=== PATIENT | female | born 1960 | race Caucasian/White ===

== ENCOUNTER 2021-07-13 11:59 | Emergency (ER) | payer OTHER, SELFPAY ==
[2021-07-13 12:07] VITALS: BP 147/77; PULSE 63; RESP 18; TEMP 37.2; O2SAT 100
--- NOTE | 2021-07-13 12:23 | ED.GENADULT ---
HPI - General Adult General Chief complaint: Back Pain/Injury Stated complaint: Upper back Pain Time Seen by Provider: 07/13/21 12:13 Source: patient Mode of arrival: ambulatory Limitations: no limitations History of Present Illness HPI narrative: 61-year-old female presented for complaint of pain to left shoulder blade and radiates down the left arm for 5 days. Pain is constant and sharp. She states she tried massage last night, pain is worse today. Pain is reproducible, worsened with movements like sitting at the computer. Better when laying back or having arm up over her head. She is taking Aleve which also reduces pain. Denies associated heart racing, shortness of breath, cough, dizziness, nausea, vomiting, fever or chills. Denies PMH. Related Data Home Medications Medication Instructions Recorded Confirmed estradiol-norethindrone acet 1 tablet PO DAILY 04/06/19 07/13/21 Allergies Allergy/AdvReac Type Severity Reaction Status Date / Time No Known Allergies Allergy Verified 07/13/21 12:07 Review of Systems Review of Systems: CONSTITUTIONAL: Denies body aches, fever, chills, or sweats. EYES: Denies visual changes, redness, or discharge. ENT: Denies rhinorrhea, congestion, sore throat, or otalgia. CARDIOVASCULAR: Denies chest pain, palpitations, or edema. RESPIRATORY: Denies cough or dyspnea. GASTROINTESTINAL: Denies abdominal pain, nausea, vomiting, or diarrhea. GENITOURINARY: Denies dysuria or hematuria. SKIN: Denies rash, itching, or wounds. MUSCULOSKELETAL: reports left back pain NEUROLOGIC: Denies headache, numbness, tingling, or weakness. PSYCH: Denies depression or anxiety. All systems reviewed & are unremarkable except as noted in HPI and below [facility] Past Medical History Medical History (Updated 07/13/21 @ 12:31 by Padma Figueroa APRN) Vitamin D deficiency Family History Family History Mother Diabetes mellitus Hypertension Family history of malignant neoplasm of breast in first degree relative Family history of diabetes mellitus in first degree relative Father Family history of malignant neoplasm of bone Social History Social History Smoking status: Never smoker Second hand tobacco smoke exposure: No Alcohol intake: current Comments At time of signature, I have reviewed and agree with nursing past medical, surgical, social and family history unless otherwise noted. Please see nursing chart for further information. There is no relevant family history pertinent to the presenting complaint Exam Narrative: GENERAL: Well-appearing HEAD: Normocephalic, atraumatic. EYES: EOMI. No redness or drainage. Conjunctivae normal. ENT: Mucous membranes pink and moist. No rhinorrhea. NECK: Normal AROM. Supple. No lymphadenopathy. CHEST: No respiratory distress. Clear to auscultation. HEART: Regular rate and rhythm. No murmur appreciated. Normal peripheral pulses. ABDOMEN: Soft, nontender, nondistended, normal active bowel sounds. MUSCULOSKELETAL: No bony tenderness. Pain is reproducible to back mid scapula EXTREMITIES: Normal range of motion. No edema. SKIN: Warm, dry, no rash. Capillary refill normal. Normal skin turgor. NEURO: No focal deficits. Alert and oriented x3. Gait steady. PSYCH: Normal affect. No signs of depression or anxiety. Course Course Emergency Course: Patient is aware of diagnosis, understands and agrees to treatment plan. Anticipatory guidance given. Patient agrees to follow-up as directed and is aware of reasons to seek care at the emergency department. Portions of this record may have been created with voice recognition software Level of Care: Express Care Visit Vital Signs Vital signs: Vital Signs Temperature 98.9 F 07/13/21 12:07 Pulse Rate 63 07/13/21 12:07 Respiratory Rate 18 07/13/21 12:07 Blood Pressure 147/77 H 07/13
--- NOTE | 2021-07-13 12:28 | ECG_ITS ---
Measurements Intervals [place] Rate: 59 P: 62 GA: 119 QRS: 11 QRSD: 90 T: 45 QT: 416 QTc: 414 Interpretive Statements SINUS BRADYCARDIA WITH SHORT GA INTERVAL LOW QRS VOLTAGE IN PRECORDIAL LEADS [QRS DEFLECTION < 1.0 mV IN CHEST LEADS] NO PREVIOUS ECG AVAILABLE FOR COMPARISON Electronically Signed On 07-13-2021 18:45:36 CDT by Fatou Taylor M.D.
[2021-07-13] MEDS: KETOROLAC (*BKC) 60 MG/2 ML VIAL IM (12:38)
== END 2021-07-13 12:53 | disposition home or self-care (01) ==
PROVIDERS: Emergency Provider Nurse Practitioner Family
DX: M54.6 Pain in thoracic spine (principal)
CPT/HCPCS: 93005; 96372; 99213; G0463; J1885

== ENCOUNTER 2021-07-19 10:30 | Emergency (ER) | payer OTHER, SELFPAY ==
[2021-07-19] VITALS (34 sets, daily range): BP systolic 121–155; BP diastolic 75–108; PULSE 50–84; RESP 9–23; O2SAT 83–100
--- NOTE | ~2021-07-19 | XR_ITS ---
EXAMINATION: XR chest 2V 07/19/2021 11:14 INDICATION: Left-sided chest pain PROCEDURE: 2 view chest COMPARISON: 01/21/2018 FINDINGS: The lungs are clear. The cardiomediastinal silhouette is within normal limits. There are no pleural effusions. There is no pneumothorax suspected. IMPRESSION: 1: NO ACUTE CARDIOPULMONARY DISEASE. Reviewed, dictated and finalized at location A.
--- NOTE | 2021-07-19 10:34 | ECG_ITS ---
Measurements Intervals [place] Rate: 61 P: 63 AR: 117 QRS: 1 QRSD: 87 T: 50 QT: 425 QTc: 431 Interpretive Statements SINUS RHYTHM WITH SINUS ARRHYTHMIA WITH SHORT AR INTERVAL ABNORMAL ECG COMPARED TO ECG 07/13/2021 12:27:53 SINUS RHYTHM NOW PRESENT SINUS ARRHYTHMIA NOW PRESENT Electronically Signed On 07-19-2021 14:19:00 CDT by Stephon Mcknight M.D.
[2021-07-19 11:03] LABS: Basophils Percent Auto 0.6 % (0.2-1.2); Eosinophils Absolute Auto 0.1 K/mm3 (0-0.3); Eosinophils Percent Auto 2.8 % (0-4.4); Hematocrit 40.1 % (37.0-47.0); Hemoglobin 13.1 g/dL (12.0-15.0); Immature Granulocyte Absolute 0.02 K/mm3 (0.00-0.031); Immature Granulocyte Percent A 0.4 % (0-0.5); Lymphocytes Absolute Auto 1.91 K/mm3 (0.9-3.2); Mean Corpuscular HGB Conc 32.7 g/dl (32-36); Mean Corpuscular Hemoglobin 31.5 pg (26-34); Mean Corpuscular Volume 96.4 fl (80-100); Mean Platelet Volume 9.2 fl (7.4-10.4); Monocytes Absolute Auto 0.4 K/mm3 (0.1-0.6); Monocytes Percent Auto 8.3 % (2.6-8.5); Neutrophils Absolute Auto 2.5 K/mm3 (1.3-6.7); Neutrophils Percent Auto 49.9 % (45.5-73.1); Platelet Count Result 283 k/mm3 (150-375); Red Blood Count 4.16 M/mm3 (4.2-5.4); Red Cell Distribution Width 12.2 % (11.5-14.5)
[2021-07-19 11:13] LABS: Prothrombin Time 12.7 Seconds (11.1-14.7)
[2021-07-19 11:22] LABS: Alanine Aminotransferase 16 U/L (4-35); Albumin Level 4.5 g/dL (3.5-5.1); Alkaline Phosphatase 75 U/L (38-126); Anion Gap 5 mmol/L (8-16); Aspartate Amino Transferase 24 U/L (14-36); Bilirubin,Total 0.5 mg/dL (0.2-1.3); Blood Urea Nitrogen 18 mg/dL (7-17); Calcium 8.8 mg/dL (8.4-10.2); Carbon Dioxide 26 mmol/L (22-30); Chloride 105 mmol/L (98-107); Estimated Glomerular Filt Rate 57; Glucose 99 mg/dL (65-110); Lipase 99 U/L (23-300); Potassium 4.1 mmol/L (3.4-5.0); Sodium 136 mmol/L (137-145)
--- NOTE | 2021-07-19 11:26 | PC.NURSE ---
Attempted to medicate pt with 324mg ASA. Pt states she took Excedrin migraine this morning which has 250mg ASA in it. Per fran Vinson to administer additional 324mg ASA.
[2021-07-19] MEDS: ASPIRIN 81 MG CHEWABLE TABLET 324 MG PO (11:28)
[2021-07-19 11:33] LABS: Troponin I < 0.012 ng/mL (0.000-0.034)
--- NOTE | 2021-07-19 12:28 | ED.GENADULT ---
HPI - General Adult General Chief complaint: Chest Pain Stated complaint: Chest Pain and Back Pain Time Seen by Provider: 07/19/21 11:55 Source: patient, family and RN notes reviewed Mode of arrival: ambulatory Limitations: no limitations History of Present Illness HPI narrative: 61-year-old female with no personal cardiac history presenting to the emergency department for evaluation of back pain and chest pain. Patient states on she began developing some back pain between her shoulder blades. Patient states the pain is changed when she moves her hand above her head. Patient did have follow-up and was started on Flexeril and Toradol. Patient states in response to this treatment she did feel improved. Patient states that she resumed her normal activity on Saturday and then Saturday morning she woke up and was having a return of her back pain. Patient then had follow-up on Saturday with her primary care physician and was started on meloxicam. Patient states that she has had persistent anterior pain as well. Patient states the pain has been constant for today. Patient does state the pain sometimes radiates to her left arm. Patient denies any associated shortness of breath. Patient denies being a smoker. Patient states that she has no prior history of hypertension high cholesterol or coronary artery disease. Patient has never had a stress test. Related Data Home Medications Medication Instructions Recorded Confirmed estradiol-norethindrone acet 1 tablet PO DAILY 04/06/19 07/13/21 Allergies Allergy/AdvReac Type Severity Reaction Status Date / Time No Known Allergies Allergy Verified 07/19/21 10:46 Review of Systems Review of Systems: CONSTITUTIONAL: Denies fever, chills, or sweats. EYES: Denies visual changes, redness, or discharge. ENT: Denies rhinorrhea, congestion, sore throat, or otalgia. CARDIOVASCULAR: reports back and chest pain RESPIRATORY: Denies cough or dyspnea. GASTROINTESTINAL: Denies abdominal pain, nausea, vomiting, or diarrhea. GENITOURINARY: Denies dysuria or hematuria. SKIN: Denies rash or itching. MUSCULOSKELETAL:upper back pain NEUROLOGIC: Denies headache, numbness, or weakness. All systems reviewed & are unremarkable except as noted in HPI and below PMFSH Past Medical History Medical History (Updated 07/19/21 @ 15:10 by Mitchell Raymond MD) Vitamin D deficiency Family History Family History Mother Diabetes mellitus Hypertension Family history of malignant neoplasm of breast in first degree relative Family history of diabetes mellitus in first degree relative Father Family history of malignant neoplasm of bone Social History Social History Smoking status: Never smoker Second hand tobacco smoke exposure: No Alcohol intake: current Exam Narrative: APPEARANCE: Well appearing, no pain, no distress, well-nourished. HEAD: normocephalic, atraumatic. EYES: PERRLA/EOMI, conjunctivae clear. NOSE: Normal no drainage EARS:TMS clear with good light reflex. THROAT: Pharynx clear, no exudate. NECK: Supple. No adenopathy, no masses. RESPIRATORY: Airway patent, respirations nonlabored. Clear to auscultation bilaterally, no rales, rhonchi, wheezing. CARDIOVASCULAR: Regular rate and rhythm without murmurs rubs or gallops. ABDOMINAL: Soft, nontender, nondistended, normal bowel sounds MUSCULOSKELETAL: Moves all extremities. Strength/ROM intact, No edema, No calf tenderness. NEURO: Alert. Cranial nerves II through XII intact. Good coordination SKIN: Warm, dry. Normal Color Course Course Emergency Course: Patient had negative serial troponins and a negative dimer. Chest x-ray shows no acute cardiopulmonary abnormality. Per her heart score patient is low risk and is suitable for discharge to home with outpatient follow up and outpatient cardiac testing. Patient was advised on ludivina
[2021-07-19 14:27] LABS: Troponin I < 0.012 ng/mL (0.000-0.034)
[2021-07-19 14:28] LABS: D Dimer 0.27 ug/mL (<0.48)
[2021-07-19] MEDS: HYDROcodone/acetaminophen (*CRX) 5-325 MG TABLET 1 TAB PO (15:27)
== END 2021-07-19 15:28 | disposition home or self-care (01) ==
PROVIDERS: Emergency Medicine; Emergency Provider Emergency Medicine; PCP Physician Assistant
DX: R07.89 Other chest pain (principal)
CPT/HCPCS: 36415; 71046; 80053; 83690; 84484; 85025; 85380; 85610; 85730; 93005; 99284; A9270

== ENCOUNTER → 2021-07-22 10:40 | Outpatient (CLI) | payer OTHER, SELFPAY ==
--- NOTE | ~2021-07-22 | XR_ITS ---
EXAMINATION: XR lumbar spine 2-3V DATE: 07/22/2021 12:07 INDICATION: Left-sided mid back pain. TECHNIQUE: 3 views of lumbar spine were obtained. COMPARISON: None. FINDINGS: There is 7 degrees levocurvature of lumbar spine. There is a hypoplastic right L1 rib. Vert ebral body heights are normal. There is mildly decreased disc height at L2-L3 and L3-L4. There are en dplate osteophytes at most levels. There is multilevel mild to moderate facet joint osteoarthritis. IMPRESSION: 1. Mild lumbar spondylosis. Reviewed, dictated and finalized at location A. IMPRESSION: 1. Mild lumbar spondylosis.
--- NOTE | ~2021-07-22 | XR_ITS ---
EXAMINATION: XR chest 2V EXAM DATE: 07/22/2021 12:07 INDICATION: Left-sided mid back pain. TECHNIQUE: Frontal and lateral projections of the chest obtained and reviewed. Comparison is made to prior examination from 07/19/2021. FINDINGS: The lungs are clear. There are no pleural effusions. The cardiomediastinal silhouette is within normal limits. There is no pneumothorax suspected. The bones and soft tissues are unremarkab le. IMPRESSION: Normal chest x-ray exam. Reviewed, dictated and finalized at location G. IMPRESSION: Normal chest x-ray exam.
== END ==
PROVIDERS: PCP Physician Assistant; Visit Provider Physician Assistant
DX: M54.9 Dorsalgia, unspecified (principal); M25.512 Pain in left shoulder; M47.816 Spondylosis without myelopathy or radiculopathy, lumbar region
CPT/HCPCS: 71046; 72100

== ENCOUNTER → 2021-07-27 10:58 | Outpatient (CLI) | payer OTHER, SELFPAY ==
--- NOTE | ~2021-07-27 | XR_ITS ---
XR thoracic spine 3V DATE: 07/27/2021 11:40 INDICATION: Left mid back pain TECHNIQUE: AP, lateral and swimmer views COMPARISON: None FINDINGS: Prominent degenerative disc disease in the lower cervical spine. There is minimal degenerative spurring of the thoracic spine. No fracture, dislocation or bone destru ction. The thoracic pedicles are intact. No paraspinal soft tissue thickening. IMPRESSION: Degenerative disc disease of the lower cervical spine Minimal degenerative spurring of the thoracic spine Reviewed, dictated and finalized at location A.
--- NOTE | ~2021-07-27 | XR_ITS ---
XR shoulder LT min 2V DATE: 07/27/2021 11:40 INDICATION: Acute left shoulder pain TECHNIQUE: 4 views COMPARISON: None FINDINGS: No fracture or dislocation, periosteal reaction or bone destruction or abnormal soft tissue calcification. Normal alignment at the acromioclavicular and glenohumeral joints. Degenerative disc disease and included lower cervical spine. IMPRESSION: Negative left shoulder Degenerative changes of the cervical spine Reviewed, dictated and finalized at location A.
== END ==
PROVIDERS: PCP Physician Assistant; Visit Provider Physician Assistant
DX: M25.512 Pain in left shoulder (principal); M47.813 Spondylosis without myelopathy or radiculopathy, cervicothoracic region
CPT/HCPCS: 72072; 73030

== ENCOUNTER 2021-08-18 15:05 | Outpatient (CLI) | payer OTHER, SELFPAY ==
--- NOTE | ~2021-08-18 | MM_ITS ---
EXAMINATION: MM screening yuan BI w horacio HISTORY: Screening mammogram TECHNIQUE: Craniocaudal and mediolateral oblique 3-D tomosynthesis images were obtained and synthetic 2-D images were generated. CAD analysis was submitted and interpreted. COMPARISON: 02/07/2018, 04/18/2016, 04/20/2013 bilateral screening mammogram examinations BREAST PARENCHYMAL COMPOSITION: The breasts are heterogeneously dense, which may obscure small masses . FINDINGS: There is no evidence of suspicious mass, calcification, or architectural distortion to sugg est malignancy in either breast. There has been no suspicious interval change. IMPRESSION: 1. No mammographic evidence of malignancy. 2. Recommend routine screening mammography in one year. BI-RADS Category 1: Negative Reviewed, dictated and finalized at location A.
== END 2021-08-18 15:06 | disposition home or self-care (01) ==
LOC: ANHIMG 15:08
PROVIDERS: PCP Physician Assistant; Visit Provider Nurse Practitioner
DX: Z12.31 Encounter for screening mammogram for malignant neoplasm of breast (principal)
CPT/HCPCS: 77063; 77067

== ENCOUNTER 2022-09-13 12:15 | Emergency (ER) | payer OTHER, SELFPAY ==
--- NOTE | ~2022-09-13 | XR_ITS ---
EXAMINATION: XR chest 2V 09/13/2022 12:43 INDICATION: Cough PROCEDURE: 2 view chest COMPARISON: 07/22/2021 FINDINGS: The lungs are clear. The cardiomediastinal silhouette is within normal limits. There are no pleural effusions. There is no pneumothorax suspected. IMPRESSION: 1: NO ACUTE CARDIOPULMONARY DISEASE. Reviewed, dictated and finalized at location L.
--- NOTE | 2022-09-13 12:19 | ED.URI ---
HPI - URI/Sore Throat General Chief Complaint: Upper Respiratory Infection Stated Complaint: cough / fever Time Seen by Provider: 09/13/22 12:29 Source: patient and RN notes reviewed Mode of arrival: ambulatory Limitations: no limitations History of Present Illness HPI Narrative: 62-year-old female presents with concern for 4 day history of fevers, fatigue, general malaise, cough, feeling dizzy. She reports her had similar symptoms that he got better. She reports she started feeling better yesterday yesterday it got worse again this morning. She reports some nasal congestion. Denies sore throat, stomachache, vomiting, diarrhea MD elicited complaint: cough and sore throat Related Data Home Medications Medication Instructions Recorded Confirmed estradiol-norethindrone acet 0.5 1 tablet PO DAILY 04/06/19 09/13/22 mg-0.1 mg tablet Allergies Allergy/AdvReac Type Severity Reaction Status Date / Time No Known Allergies Allergy Verified 09/13/22 12:34 Review of Systems Review of Systems: CONSTITUTIONAL: Reports malaise, fatigue, fever. EYES: Denies visual changes, redness, or discharge. ENT: Reports rhinorrhea, congestion. Denies sinus pain, otalgia and sore throat. CARDIOVASCULAR: Denies chest pain, palpitations, or edema. RESPIRATORY: Reports cough. Denies dyspnea. GASTROINTESTINAL: Denies abdominal pain, nausea, vomiting, diarrhea SKIN: Denies rash or itching. MUSCULOSKELETAL: Reports myalgia. NEUROLOGIC: Denies headache. All systems reviewed & are unremarkable except as noted in HPI and below PMFSH Past Medical History Medical History (Updated 09/13/22 @ 12:50 by Ashely Neil NP) Vitamin D deficiency Family History Family History Mother Diabetes mellitus Hypertension Family history of malignant neoplasm of breast in first degree relative Family history of diabetes mellitus in first degree relative Father Family history of malignant neoplasm of bone Social History Social History Smoking status: Never smoker Second hand tobacco smoke exposure: No Alcohol intake: current Comments At time of signature, agree with nursing past medical, surgical, social and family history. There is no relevant family history pertinent to the presenting complaint Exam Narrative: GENERAL: Nontoxic-appearing and in no acute distress. HEAD: Normocephalic EYES: PERRLA, conjunctivae clear ENT: Nares clear, turbinates edematous and erythematous, clear discharge. Mucous membranes moist. TM pearly fajardo with sharp light reflex bilaterally; no tragal tenderness. Oropharynx not erythematous without lesions. Tonsils not enlarged and without exudate, no drooling, no hoarseness, no trismus, uvula midline. NECK: Supple. No lymphadenopathy CHEST: Clear to auscultation, breath sounds equal. No wheezing, rhonchi, rales, or stridor. No respiratory distress, speaks in full sentences. Cough noted HEART: Regular rate and rhythm. No murmur heard. SKIN: Warm, dry, no rash. NEURO: Alert and oriented x3. PSYCH: Normal mood and affect Course Course Emergency Course: Patient is aware of diagnosis, understands and agrees to treatment plan. Anticipatory guidance given. Patient agrees to follow-up as directed and is aware of reasons to seek care at the emergency department. Portions of this record may have been created with voice recognition software Level of Care: Express Care Visit Vital Signs Vital signs: Reviewed. MDM - URI/Sore Throat MDM Narrative Medical decision making narrative: Differential diagnosis considered: Navarro virus, strep pharyngitis, allergic rhinitis, upper respiratory tract infection, sinusitis, rhinosinusitis, nasopharyngitis. viral pharyngitis, otitis media, otitis externa, pneumonia, bronchitis, viral cough syndrome, viral syndrome, and influenza. Exam findings show no a
[2022-09-13 12:28] VITALS: BP 133/88; PULSE 68; RESP 18; TEMP 36.3; O2SAT 99
== END 2022-09-13 13:14 | disposition home or self-care (01) ==
PROVIDERS: Emergency Provider Nurse Practitioner
DX: J10.1 Influenza due to other identified influenza virus with other respiratory manifestations (principal)
CPT/HCPCS: 71046; 87804; 99213; G0463

== ENCOUNTER 2023-06-24 11:10 | Emergency (ER) | payer OTHER, SELFPAY ==
[2023-06-24 11:51] VITALS: BP 139/83; PULSE 55; RESP 18; TEMP 36.7; O2SAT 100
--- NOTE | 2023-06-24 12:17 | ED.GENADULT ---
HPI - General Adult General Chief complaint: Skin/Abscess/Foreign Body Stated complaint: broken blood vessel lt eye Time Seen by Provider: 06/24/23 12:17 Source: patient, RN notes reviewed and old records reviewed Mode of arrival: ambulatory Limitations: no limitations History of Present Illness HPI narrative: 63 old female presents to the [facility] with a bruise to the left outer eye, no eye involvement. Denies any trauma. No tenderness to the surrounding tissue States that she wears contact lenses. States that she did not notice a bruise when she put the contact lenses in this morning. Has all 6 levels of days, denies any pain. Onset (ago): hour(s) Related Data Home Medications Medication Instructions Recorded Confirmed estradiol-norethindrone acet 0.5 1 tablet PO DAILY 04/06/19 06/24/23 mg-0.1 mg tablet celecoxib 200 mg capsule mg 06/24/23 Allergies Allergy/AdvReac Type Severity Reaction Status Date / Time No Known Allergies Allergy Verified 06/24/23 12:21 Review of Systems Review of Systems: All systems reviewed & are unremarkable except as noted in HPI and below Constitutional: Constitutional: Reports no additional constitutional complaints Eyes: Eyes: Reports no additional eye complaints ENT: Reports system reviewed and no additional complaints, except as documented Cardiovascular: Cardiovascular: Reports no additional cardiovascular complaints, Denies chest pain and Denies dyspnea Respiratory: Respiratory: Reports no additional respiratory complaints, Denies chest congestion, Denies cough and Denies dyspnea Gastrointestinal: Gastrointestinal: Reports no additional gastrointestinal complaints, Denies abdominal pain, Denies nausea and Denies vomiting Musculoskeletal: Musculoskeletal: Reports no additional musculoskeletal complaints Integumentary/Breasts: Skin/Breast: Reports as per HPI Neurologic: Reports system reviewed and no additional complaints, except as documented Psychiatric: Psychiatric: Reports no additional psychiatric complaints Allergic/Immunologic: Allergic/Immunologic: Reports no additional allergic/immunologic complaints [facility] Past Medical History Medical History Vitamin D deficiency Family History Family History Mother Diabetes mellitus Hypertension Family history of malignant neoplasm of breast in first degree relative Family history of diabetes mellitus in first degree relative Father Family history of malignant neoplasm of bone Social History Social History Smoking status: Never smoker Second hand tobacco smoke exposure: No Alcohol intake: current Comments At the time of my signature, I reviewed and agree with the nursing past medical, surgical, social, and family history. There is no relevant family history pertinent to the patient complaint. Exam Const: General: cooperative, healthy appearing, comfortable, no acute distress, well developed, alert and well nourished Nutritional Appearance: well nourished Orientation/consciousness: patient oriented x3 Limitations: no limitations HENMT: Head: normal to inspection Head images: 1. Left outer eye 0.5 cm by 1 cm ecchymosis without swelling, erythema, rash. No eye involvement, no conjunctival involvement Ears: hearing grossly normal bilaterally and external ears normal Face/Nose/Sinus: Normal external nose present, Normal nares present, Normal nasal mucous membranes and turbinates present, normal facial exam and face symmetric Face and sinus: normal facial exam and face symmetric Mouth: Yes Normal oral and palatal mucosa present, Yes lip normal and Yes moist mucous membranes Throat: posterior oropharynx normal and uvula midline Eyes: General: appearance normal, both eyes and all related structures Alignment and Position: alignment nor
== END 2023-06-24 12:39 | disposition home or self-care (01) ==
PROVIDERS: Emergency Provider Nurse Practitioner
DX: S00.12XA Contusion of left eyelid and periocular area, initial encounter (principal); X58.XXXA Exposure to other specified factors, initial encounter
CPT/HCPCS: 99211; G0463

== ENCOUNTER 2023-10-14 08:48 | Outpatient (CLI) | payer OTHER, SELFPAY ==
--- NOTE | ~2023-10-14 | DEXA_ITS ---
Bone Density Report Name: VERONIQUE SHANKAR Age: 63 Sex: Female Ethnicity: White Date of : 1960 Indication: postmenopausal; screening for osteoporosis; height loss; history of glucocorticoids; Referring Provider: RIGOBERTO, ARTEM Study: Bone densitometry was performed. Exam Date: October 14, 2023 Accession number: [id number] Bone Density: Region BMD T-score Z-score Classification AP Spine(L1-L4) 1.088 0.4 1.9 Normal Femoral Neck (Left) 0.781 -0.6 0.7 Normal Total Hip (Left) 1.001 0.5 1.5 Normal Femoral Neck (Right) 0.773 -0.7 0.7 Normal Total Hip (Right) 0.987 0.4 1.4 Normal Total Hip Mean 0.994 0.5 1.5 Normal World Health Organization criteria for BMD impression classify patients as: Normal (T-score at or above -1.0), Osteopenia (T-score between -1.0 and -2.5), or Osteoporosis (T-score at or below -2.5). 10-year Fracture Risk: FRAX not reported because: All T-scores for Spine Total, Hip Total, Femoral Neck at or above -1.0 Previous Exams: Region Exam Age BMD T-score BMD Change BMD Change Date g/cm2 vs Baseline vs Previous AP Spine (L1-L4) 10/14/2023 63 1.088 0.4 0.014 (1.3%) 0.014 (1.3%) 04/18/2016 56 1.074 0.2 Total Hip(Left) 10/14/2023 63 1.001 0.5 0.049 (5.1%)* 0.049 (5.1%)* 04/18/2016 56 0.953 0.1 Total Hip(Right) 10/14/2023 63 0.987 0.4 0.062 (6.7%)* 0.062 (6.7%)* 04/18/2016 56 0.926 -0.1 *Denotes significance at 95% confidence level, LSC for AP Spine = 0.022 g/cm2, LSC for Total Hip = 0.027 g/cm2 Clinical Information Provided by Patient: Has taken Glucocorticoids Has used the following medications: Vitamin D, Calcium Patient maximum height was 68.0 Drinks caffeinated beverages Onset of menses at age 19 Number of children 3 Impression: The patient has normal bone mass. The patient has risk factors, including: history of glucocorticoid therapy. No significant bone loss was observed. Discussion: BONE DENSITY IS ABOVE THE MINIMUM DESIRABLE LEVEL AT ALL SKELETAL SITES TESTED. This patient?s bone mineral density is above the minimum desirable level (T-score -1.0 or better) at all sites measured. The patient should follow a healthful lifestyle (good nutrition with adequate calcium and vitamin D, and appropriate weight-bearing exercise). Follow-Up: Consider repeating this study in 5 years or sooner if there is some new clinical indication. Reported by: HANH on 10/14/2023
--- NOTE | ~2023-10-14 | MM_ITS ---
EXAMINATION: MM screening yuan BI w horacio HISTORY: Screening TECHNIQUE: Craniocaudal and mediolateral oblique 3-D tomosynthesis images were obtained and synthetic 2-D images were generated. CAD analysis was submitted and interpreted. COMPARISON: Comparison to multiple prior studies sequentially, with oldest reviewed study dated 03/30. BREAST PARENCHYMAL COMPOSITION: Dense: The breasts are heterogeneously dense, which may obscure small masses FINDINGS: There are developing focal asymmetries in the left breast on CC view. The right breast is s table without evidence for malignancy. IMPRESSION: 1. Developing left breast asymmetries. 2. Additional mammographic views and possible breast ultrasound are recommended. BI-RADS Category 0: Incomplete: Needs additional imaging evaluation. Reviewed, dictated and finalized at location B. IMPRESSION: 1. Developing left breast asymmetries. 2. Additional mammographic views and possible breast ultrasound are recommended . BI-RADS Category 0: Incomplete: Needs additional imaging evaluation.
== END 2023-10-14 08:49 | disposition home or self-care (01) ==
LOC: ANHIMG 08:54
PROVIDERS: Visit Provider Nurse Practitioner
DX: Z12.31 Encounter for screening mammogram for malignant neoplasm of breast (principal); N64.89 Other specified disorders of breast; Z78.0 Asymptomatic menopausal state; Z13.820 Encounter for screening for osteoporosis
CPT/HCPCS: 77063; 77067; 77080

== ENCOUNTER 2024-09-15 08:15 | Emergency (ER) | payer OTHER, SELFPAY ==
--- OUTSIDE RECORDS SUMMARY | 2024-09-15 08:24 | XMS_ITS | Referral Summary ---
Author Organization [facility] [address] [facility] Address [address] [place] [address] Care Team Providers Care Local Delivery Truck Driver Name Role Phone No, Physician Primary Care Provider [phone] Encounters Date Type Department Care Team Description 08/26/2024 2:30 PM CDT Office Visit [facility] Obstetrics and Gynecology [address] [place] [address] 7th Floor [address] [place] [phone] Jaimie Huang MD Uterine prolapse (Primary Dx) 07/21/2024 Telephone [facility] Obstetrics and Gynecology [address] [place] [address] 7th Floor [address] [place] [phone] Elina Walls RN 07/08/2024 Telephone [facility] Obstetrics and Gynecology [address] [place] [address] 7th Floor [address] [place] [phone] Elina Walls, RN [facility] 07/06/2024 Telephone [facility] Obstetrics and Gynecology [address] [place] [address] Floor [address] [place] [phone] Elina Walls, RN Post-Op Call 07/02/2024 9:53 AM BIOINFORMATICS RESEARCH TECHNICIAN - 07/04/2024 11:59 AM BIOINFORMATICS RESEARCH TECHNICIAN Hospital Encounter [facility] [address] [place] [phone] Jaimie Huang MD Uterine prolapse Discharge Disposition: Discharge to home or self care 07/03/2024 Telephone [facility] Cardiology [address] [place] [address] 8th [place] [address] [place] [phone] Padma Davis 07/03/2024 Telephone [facility] Obstetrics and Gynecology [address] [facility] Outpatient [facility] 7th Floor [address] [place] [phone] Elina Walls RN Post-Op Call 07/02/2024 12:20 PM BIOINFORMATICS RESEARCH TECHNICIAN - 07/02/2024 3:45 PM BIOINFORMATICS RESEARCH TECHNICIAN Surgery [facility] Operating Room [address] [place] [phone] Jaimie Huang MD HYSTERECTOMY VAGINAL 07/02/2024 12:07 PM BIOINFORMATICS RESEARCH TECHNICIAN Anesthesia Event [facility] Operating Room [address] [place] [phone] Gerardo Ball MD PhD Jaimie Spann, DELBERT 07/01/2024 Telephone [facility] Obstetrics and Gynecology [facility] 7th Floor [address] [place] [phone] Tomasa Pedraza CMA 06/24/2024 1:30 PM BIOINFORMATICS RESEARCH TECHNICIAN Pre-Admission Testing [facility] for Preoperative Assessment and Planning [facility] ([facility]) [facility] [place] [address] Preoperative testing (Primary Dx); Uterine prolapse from Last 3 Months Allergies Active Allergy Reactions Criticality Noted Date Comments Oxycodone Palpitations,Dizziness Low 07/02/2024 Pt request to add Medications estradiol-noreth indrone (ACTIVELLA) 0.5-0.1 mg per tabletIndication s:Post-Menopausa l Osteoporosis Prevention Take 1 tablet by mouth nightly 05/19/19 22 Active aspirin 325 mg tabletIndication s:Migraine,Pain Take 2 tablets (650 mg total) by mouth every 6 (six) hours as needed for pain or headaches Active vit A,C and L-opkqhv-sqcelnf s (OCUVITE with LUTEIN) 300 mcg-200 mg-27 mg-2 mg tabletIndication s:Vitamin Deficiency Prevention Take 1 tablet by mouth every morning Active mv-min/iron/foli c/calcium/vitK (WOMEN'S MULTIVITAMIN ORAL)Indications :Supplement Take 1 tablet by mouth every morning Active melatonin 3 mg tablet,disintegr atingIndications :Sleep Take 6 mg by mouth nightly Active carboxymethylcel lulose (REFRESH PLUS) 0.5 % dropperetteIndic ations:Dry Eye Administer 2 drops into both eyes 3 (three) times a day as needed for dry eyes Active docusate sodium (COLACE) 100 mg capsuleIndicatio ns:constipation Take 1 capsule (100 mg total) by mouth 2 (two) times a day 30 capsule 07/03/19 25 Active polyethylene glycol (MIRALAX) 17 gram/dose bulk powder Take 17 g by mouth daily 289 g 07/03/19 25 Active estradioL (ESTRACE) 0.01 % (0.1 mg/gram) vaginal cream Apply 1 gram nightly to vagina for 1 week, then Saturday/ y/ Saturday 42.5 g 11 07/03/19 25 Active Additional Information Patient not taking.Reported on 08/26/2024 acetaminophen (TYLENOL) 500 mg tablet Take 1 tablet (500 mg total) by mouth every 6 (six) hours as needed for pain 30 tablet 07/03/19 25 025 Discontin ued(Thera py completed ) ibuprofen (ADVIL,MOTRIN) 600 mg tablet Take 1 tablet (600 mg total) by mouth every 6 (six) hours as needed for pain 30 tablet 07/03/19 25 025 Discontin ued(Thera py completed ) Active Problems Problem Noted Date Diagnosed Date Orthostasis 07/03/2024 Assessment & Plan (07/03/2024 5:20 PM BIOINFORMATICS RESEARCH TECHNICIAN): Pt with new bradycardia (sinus reggie on EKG reviewed and tele) and orthostatic symptoms, several blood pressure readings in the 80s which were symptomatic, mostly precipitated when pt standing. Given recent surgery, slight hgb drop and Cr up, this is likely related to recent surgery, volume loss, and reactive/vasovagal orthostasis. This will likely resolve with time and without significant intervention. Seen by cards as well - 1L additional bolus - ctm on telemetry tonight - trend hgb - re- eval bp in am, when I saw pt was arleady improving and could sit up without light headedness Post-operative state 07/02/2024 Uterine prolapse 05/20/2024 BMI 24.0-24.9, adult 07/17/2021 Assessment & Plan (07/17/2021 2:44 PM CDT): Weight/BMI is in healthy range. Continue healthy lifestyle to maintain. Breast cancer screening by mammogram 07/17/2021 Assessment & Plan (07/17/2021 6:53 PM CDT): Mammogram order provided Fatigue 07/17/2021 Assessment & Plan (07/17/2021 6:53 PM CDT): Probably multifactorial. Check labs and followup to re-evaluate Lipid screening 07/17/2021 Assessment & Plan (07/17/2021 6:53 PM CDT): Check lipids Diabetes mellitus screening 07/17/2021 Assessment & Plan (07/17/2021 6:53 PM CDT): Check diabetes screen Mid back pain on left side 07/17/2021 Assessment & Plan (07/17/2021 6:55 PM CDT): This is a significant, separately identifiable problem that was evaluated and managed on the same day as the wellness exam Patient has noticed back and neck pain. Seems musculoskeletal however she does feel just a bit of radiation into the triceps at times not consistently. Strength seems to be equal. She does not really have any numbness or tingling. She had response to Toradol and Flexeril after urgent care visit. Recommend continue anti- inflammatory a. Gerson was sent to the pharmacy for 1 daily. Avoid all other anti-inflammatories. May use cyclobenzaprine even cut it in half due to sedation side effect. Ice or heat may help she can use lidocaine patches to the area. Encouraged starting physical therapy. Order provided to try to get in as soon as possible. If physical therapy fails or she has increased symptoms in the arm may need additional imaging like an MRI but advised patient many times insurance is prefer to have a course of physical therapy before approving additional imaging. She is in agreement with the plan and is to call if symptoms worsen Annual physical exam 07/17/2021 Assessment & Plan (07/17/2021 6:55 PM CDT): Encouraged healthy lifestyle, good nutrition and exercise. Encouraged Calcium and Vitamin D and weight bearing exercise for bone health. Reviewed immunizations Reviewed age appropirate screenings. Immunizations Immunization Administration Dates Next Due Influenza, Unspecified 05/30/2021(Deferred: Mary ent Refused) Social History Tobacco Use Types Packs/Day Years Used Date Smoking Tobacco: Never Passive Smoke Exposure: Never Smokeless Tobacco: Never AUDIT-C Answer Date Recorded Q1: How often do you have a drink containing alc ohol? Monthly or less 07/02/2024 Q2: How many drinks containi ng alcohol do you have on a typical day when you are drinking? 1 or 2 07/02/2024 Q3: How often do you have si x or more drinks on one occasion? Never 07/02/2024 PHQ-2 Answer Date Recorded PHQ-2 Total Score (If total score is 3 or more points, staff should administer the PHQ-9) 0 07/17/2021 Personal Safety Answer Date Recorded Have you ever been in or are you currently in a harmful physical or emotional relationship or is someone making you feel afraid or unsafe? Denies 07/02/2024 Comments No Sex and Gender Information Value Date Recorded Sex Assigned at Not on file Legal Sex Female 6:24 PM BIOINFORMATICS RESEARCH TECHNICIAN Gender Identity Female 08/25/2024 11:16 PM CDT Sexual Orientation Not on file Last Filed Vital Signs Vital Sign Reading Time Taken Comments Blood Pressure 140/88 08/26/2024 2:23 PM CDT Pulse 62 07/04/2024 3:15 AM BIOINFORMATICS RESEARCH TECHNICIAN Temperature 36.5 C (97.7 F) 07/04/2024 10:15 AM BIOINFORMATICS RESEARCH TECHNICIAN Respiratory Rate 18 07/04/2024 10:1 5 AM BIOINFORMATICS RESEARCH TECHNICIAN Oxygen Saturation 98% 07/04/2024 3:15 AM BIOINFORMATICS RESEARCH TECHNICIAN Inhaled Oxygen Concentration - - Weight 69.8 kg (153 lb 12.8 oz) 08/26/2024 2:23 PM CDT Height 170.2 cm (5' 7 ) 08/26/2024 2:23 PM CDT Body Mass Index 24.09 08/26/2024 2:23 PM CDT Plan of Treatment Not on file Goals Goal Patient Goal Type Associated Problems Recent Progress Patient-Stated? Author CCM Chronic Pain Care Plan Chronic Care Management No Mariposa Ferrari RN Note: Problem: Chronic Pain Goals: 1. Minimize further functional decline 2. Maximize quality of life 3. Control pain Strategies: - Activity/exercise program recommendation - Conservative stepwise pain medicine strategy with multi-disciplinary approach - Recommend healthy lifestyle strategies and compensatory methods as needed Reduce the likelihood of falling Lifestyle No Mariposa Ferrari, RN Note: Below are four things you can do to prevent falls: Begin an exercise program to improve your leg strength & balance Ask your doctor or pharmacist to review your medicines Get annual eye check-ups & update your eyeglasses Make your home safer by: Removing clutter & tripping hazards Putting railings on all stairs & adding grab bars in the bathroom Having good lighting, especially on stairs Contact your local community or [facility] for information on exercise, fall prevention programs, or options for improving home safety. Medical Devices Implanted Type Area Leather Stitcher Device Identifier Shelf Expiration Date Model / Serial / Lot [employer] Kit Transvaginal Sling Pubourethral Female Stress Incontinence Desara Blue 1.1x45cm [id number] - Sn/A - [id number] Implanted:Qty: 1 on 07/02/2024 by Jaimie Huang MD at [facility] Mesh N/A: Vagina [employer] 08/18/2028 DORA-DS01 / N/A / Procedures Procedure Name Priority Date/Time Associated Diagnosis Comments EGFR STAT 07/04/2024 8:44 AM BIOINFORMATICS RESEARCH TECHNICIAN COMPREHENSIVE METABOLIC PANEL STAT 07/04/2024 8:44 AM BIOINFORMATICS RESEARCH TECHNICIAN CBC WITHOUT DIFFERENTIAL STAT 025 8:44 AM BIOINFORMATICS RESEARCH TECHNICIAN EGFR Routine 07/03/2024 9:59 PM BIOINFORMATICS RESEARCH TECHNICIAN PHOSPHORUS Routine 07/03/2024 9:59 PM BIOINFORMATICS RESEARCH TECHNICIAN MAGNESIUM Routine 07/03/2024 9:59 PM BIOINFORMATICS RESEARCH TECHNICIAN COMPREHENSIVE METABOLIC PANEL Routine 07/03/2024 9:59 PM BIOINFORMATICS RESEARCH TECHNICIAN CBC WITHOUT DIFFERENTIAL Routine 025 9:59 PM BIOINFORMATICS RESEARCH TECHNICIAN EGFR STAT 07/03/2024 1:41 PM BIOINFORMATICS RESEARCH TECHNICIAN TSH STAT 07/03/2024 1:41 PM BIOINFORMATICS RESEARCH TECHNICIAN COMPREHENSIVE METABOLIC PANEL STAT 07/03/2024 1:41 PM BIOINFORMATICS RESEARCH TECHNICIAN PHOSPHORUS STAT 07/03/2024 1:41 PM BIOINFORMATICS RESEARCH TECHNICIAN MAGNESIUM STAT 07/03/2024 1:41 PM BIOINFORMATICS RESEARCH TECHNICIAN CBC WITHOUT DIFFERENTIAL STAT 025 1:41 PM BIOINFORMATICS RESEARCH TECHNICIAN ECG 12-LEAD STAT 07/03/2024 12:00 PM BIOINFORMATICS RESEARCH TECHNICIAN POCT GLUCOSE DEVICE Routine 07/03/2024 10:28 AM BIOINFORMATICS RESEARCH TECHNICIAN CBC WITHOUT DIFFERENTIAL Routine 025 4:00 AM BIOINFORMATICS RESEARCH TECHNICIAN MAGNESIUM STAT 07/02/2024 7:45 PM BIOINFORMATICS RESEARCH TECHNICIAN PHOSPHORUS STAT 07/02/2024 7:45 PM BIOINFORMATICS RESEARCH TECHNICIAN EGFR STAT 07/02/2024 7:45 PM BIOINFORMATICS RESEARCH TECHNICIAN BASIC METABOLIC PANEL STAT 07/02/2024 7:45 PM BIOINFORMATICS RESEARCH TECHNICIAN CBC WITHOUT DIFFERENTIAL STAT 025 7:45 PM BIOINFORMATICS RESEARCH TECHNICIAN GA AN PROCEDURE PLACEHOLDER Routine 07/02/2024 1:30 PM BIOINFORMATICS RESEARCH TECHNICIAN GA AN PROCEDURE PLACEHOLDER Routine 07/02/2024 1:27 PM BIOINFORMATICS RESEARCH TECHNICIAN GA AN ELECTIVE ENDOTRACHEAL AIRWAY Routine 07/02/2024 1:27 PM BIOINFORMATICS RESEARCH TECHNICIAN SURGICAL PATHOLOGY Routine 07/02/2024 1: 03 PM BIOINFORMATICS RESEARCH TECHNICIAN Uterine prolapse B CHECK SAMPLE STAT 07/02/2024 12:40 PM BIOINFORMATICS RESEARCH TECHNICIAN COLPOPERINEORRHAPHY 07/02/2024 12:10 PM BIOINFORMATICS RESEARCH TECHNICIAN Uterine prolapse COLPOPEXY SACROSPINOUS 12:10 PM BIOINFORMATICS RESEARCH TECHNICIAN Uterine prolapse REPAIR ENTEROCELE 07/02/2024 12:10 PM BIOINFORMATICS RESEARCH TECHNICIAN Uterine prolapse REPAIR RECTOCELE 07/02/2024 12:10 PM BIOINFORMATICS RESEARCH TECHNICIAN Uterine prolapse REPAIR CYSTOCELE ANTERIOR COLPORRHAPHY 07/02/2024 12:10 PM BIOINFORMATICS RESEARCH TECHNICIAN Uterine prolapse SALPINGECTOMY 07/02/2024 12:10 PM BIOINFORMATICS RESEARCH TECHNICIAN Uterine prolapse HYSTERECTOMY VAGINAL 07/02/2024 12:10 PM BIOINFORMATICS RESEARCH TECHNICIAN Uterine prolapse EGFR Routine 06/24/2024 2:30 PM BIOINFORMATICS RESEARCH TECHNICIAN Uterine prolapse DIFFERENTIAL AUTO Routine 06/24/2024 2:3 0 PM BIOINFORMATICS RESEARCH TECHNICIAN Uterine prolapse TYPE AND SCREEN 14 DAY Routine 2:30 PM BIOINFORMATICS RESEARCH TECHNICIAN Preoperative testing CBC WITH AUTO DIFFERENTIAL Routine 06/24/2024 2:30 PM BIOINFORMATICS RESEARCH TECHNICIAN Uterine prolapse BASIC METABOLIC PANEL Routine 06/24/2024 2:30 PM BIOINFORMATICS RESEARCH TECHNICIAN Uterine prolapse SCREENING MAMMOGRAM BILATERAL W BENEDICT Schedule Routine, Read Routine (OP Routine) 08/18/2021 COLONOSCOPY Routine 08/18/2012 from Last 3 Months or Most Recently Relevant to Health Maintenance Results * (ABNORMAL) eGFR (07/04/2024 8:44 AM BIOINFORMATICS RESEARCH TECHNICIAN) eGFR 58(L) >=60 mL/min/1. 73 m2 Comment: Interpretive Data Reference Interval Normal >/= 90 mL/min/1.73m2 Mildly decreased* 60 - 89 mL/min/1.73m2 Mildly to moderately decreased 45 - 59 mL/min/1.73m2 Moderately to severely decreased 30 - 44 mL/min/1.73m2 Severely decreased 15 - 29 mL/min/1.73m2 Kidney Failure < 15 mL/min/1.73m2 *Relative to young adult level Estimated glomerular filtration rate is determined by the 2020 CKD-EPI equation recommended by the National Kidney Foundation (A Unifying Approach to GFR Estimation: Recommendations of the NKF-ASK Task Force on Reassessing the Inclusion of Race in Diagnosing Kidney Disease, JASN 2020). The CKD-EPI equation should not be used for patients with unstable renal function and has not been validated in children and those over 70. Current interpretive data was last reviewed 2021. Blood 07/04/2024 8:44 AM BIOINFORMATICS RESEARCH TECHNICIAN 07/04/2024 9:06 AM BIOINFORMATICS RESEARCH TECHNICIAN us J Carlos Castillo MD LAB BLOOD ORDERABLES Florence curran Result [facility] Department [place] [address] * (ABNORMAL) CBC without differential (07/04/2024 8:44 AM BIOINFORMATICS RESEARCH TECHNICIAN) WBC 8.2 3.8 - 9.9 K/cumm Hgb 10.6(L) 11.9 - 15.5 g/dL [facility] Hct 31.7(L) 35.6 - 45.5 % [facility] Plt 183 150 - 400 K/cumm [facility] MPV 9.9 9.1 - 12.3 fL [facility] RBC 3.37(L) 3.90 - 5.20 M/cumm [facility] MCV 94.1 81.3 - 96.4 fL [facility] MCH 31.5 27.1 - 33.3 pg [facility] MCHC 33.4 32.3 - 35.7 g/dL [facility] RDW CV 12.4 11.1 - 14.9 % [facility] RDW SD 42.5 35.7 - 48.1 fL [facility] NRBC abs 0.00 0.00 - 0.01 K/cumm [facility] Blood 07/04/2024 8:44 AM BIOINFORMATICS RESEARCH TECHNICIAN 07/04/2024 9:06 AM BIOINFORMATICS RESEARCH TECHNICIAN us J Carlos Castillo MD LAB BLOOD ORDERABLES Florence curran Result [facility] Department [place] [address] * (ABNORMAL) Comprehensive metabolic panel (07/04/2024 8:44 AM BIOINFORMATICS RESEARCH TECHNICIAN) [facility] Sodium 142 135 - 145 mmol/L Potassium, pl 3.8 3.3 - 4.9 mmol/L [facility] Chloride 106 97 - 110 mmol/L [facility] CO2 29 22 - 32 mmol/L [facility] Anion gap 7 2 - 15 mmol/L [facility] BUN 11 6 - 25 mg/dL [facility] Creatinine 1.08 0.60 - 1.10 mg/dL [facility] Glucose 107 70 - 199 mg/dL [facility] Comment: Interpretive Data Fasting glucose >/= 126 mg/dl is diagnostic for diabetes. Fasting is defined as no caloric intake for at least 8 hours. Fasting glucose between 100 mg/dl to 125 mg/dl is diagnostic of prediabetes. In a patient with classic symptoms of hyperglycemia or hyperglycemic crisis, a random glucose >/= 200 mg/dl is diagnostic for diabetes. In the absence of unequivocal hyperglycemia, results should be confirmed by repeat testing. The classification and Diagnosis of Diabetes Diabetes Care 2021; 46: S19-S40. Current interpretive data was last revised 2022. Calcium 8.6 8.5 - 10.3 mg/dL [facility] Bilirubin, total 0.4 0.1 - 1.2 mg/dL [facility] Protein, pl 6.2(L) 6.5 - 8.5 g/dL [facility] Albumin 3.9 3.5 - 5.0 g/dL [facility] Alk phos 52 40 - 130 Units/L [facility] ALT 10 7 - 45 Units/L [facility] AST 18 10 - 45 Units/L [facility] Blood 07/04/2024 8:44 AM BIOINFORMATICS RESEARCH TECHNICIAN 07/04/2024 9:06 AM BIOINFORMATICS RESEARCH TECHNICIAN J Carlos Castillo MD LAB BLOOD ORDERABLES Florence l Result Performing Organization Address [facility] Co de Phone Number [facility] Department [place] [address] * (ABNORMAL) eGFR (07/03/2024 9:59 PM BIOINFORMATICS RESEARCH TECHNICIAN) Pathologist [facility] [place] eGFR 53(L) >=60 mL/min/1. 73 m2 Comment: Interpretive Data Reference Interval Normal >/= 90 mL/min/1.73m2 Mildly decreased* 60 - 89 mL/min/1.73m2 Mildly to moderately decreased 45 - 59 mL/min/1.73m2 Moderately to severely decreased 30 - 44 mL/min/1.73m2 Severely decreased 15 - 29 mL/min/1.73m2 Kidney Failure < 15 mL/min/1.73m2 *Relative to young adult level Estimated glomerular filtration rate is determined by the 2020 CKD-EPI equation recommended by the National Kidney Foundation (A Unifying Approach to GFR Estimation: Recommendations of the NKF-ASK Task Force on Reassessing the Inclusion of Race in Diagnosing Kidney Disease, JASN 2020). The CKD-EPI equation should not be used for patients with unstable renal function and has not been validated in children and those over 70. Current interpretive data was last reviewed 2021. Blood 07/03/2024 9:59 PM BIOINFORMATICS RESEARCH TECHNICIAN 07/03/2024 10:15 PM BIOINFORMATICS RESEARCH TECHNICIAN Jaimie Huang MD LAB BLOOD ORDERABLES Florence l Result Performing Organization Address [facility]/ZIP Co de Phone Number [facility] Department [place] [address] * (ABNORMAL) CBC without differential (07/03/2024 9:59 PM BIOINFORMATICS RESEARCH TECHNICIAN) [facility] WBC 9.7 3.8 - 9.9 K/cumm Hgb 10.3(L) 11.9 - 15.5 g/dL [facility] Hct 31.1(L) 35.6 - 45.5 % [facility] Plt 202 150 - 400 K/cumm [facility] MPV 10.1 9.1 - 12.3 fL [facility] RBC 3.32(L) 3.90 - 5.20 M/cumm [facility] MCV 93.7 81.3 - 96.4 fL [facility] MCH 31.0 27.1 - 33.3 pg [facility] MCHC 33.1 32.3 - 35.7 g/dL [facility] RDW CV 12.2 11.1 - 14.9 % [facility] RDW SD 41.4 35.7 - 48.1 fL [facility] NRBC abs 0.00 0.00 - 0.01 K/cumm [facility] Blood 07/03/2024 9:59 PM BIOINFORMATICS RESEARCH TECHNICIAN 07/03/2024 10:15 PM BIOINFORMATICS RESEARCH TECHNICIAN Jaimie Huang MD LAB BLOOD ORDERABLES Florence l Result [facility] Department [place] [address] * (ABNORMAL) Phosphorus (07/03/2024 9:59 PM BIOINFORMATICS RESEARCH TECHNICIAN) Phosphorus, pl 2.2(L) 2.3 - 4.5 mg/dL Blood 07/03/2024 9:59 PM BIOINFORMATICS RESEARCH TECHNICIAN 07/03/2024 10:15 PM BIOINFORMATICS RESEARCH TECHNICIAN Jaimie Huang MD LAB BLOOD ORDERABLES Florence l Result [facility] Department [place] [address] * Magnesium (07/03/2024 9:59 PM BIOINFORMATICS RESEARCH TECHNICIAN) Pathologist [facility] [place] Magnesium 2.0 1.4 - 2.5 mg/dL Blood 07/03/2024 9:59 PM BIOINFORMATICS RESEARCH TECHNICIAN 07/03/2024 10:15 PM BIOINFORMATICS RESEARCH TECHNICIAN us Jaimie Huang MD LAB BLOOD ORDERABLES Florence l Result [facility] Department [place] [address] * (ABNORMAL) Comprehensive metabolic panel (07/03/2024 9:59 PM BIOINFORMATICS RESEARCH TECHNICIAN) Sodium 144 135 - 145 mmol/L Potassium, pl 4.3 3.3 - 4.9 mmol/L [facility] Chloride 109 97 - 110 mmol/L [facility] CO2 29 22 - 32 mmol/L [facility] Anion gap 6 2 - 15 mmol/L [facility] BUN 15 6 - 25 mg/dL [facility] Creatinine 1.17(H) 0.60 - 1.10 mg/dL [facility] Glucose 95 70 - 199 mg/dL [facility] Comment: Interpretive Data Fasting glucose >/= 126 mg/dl is diagnostic for diabetes. Fasting is defined as no caloric intake for at least 8 hours. Fasting glucose between 100 mg/dl to 125 mg/dl is diagnostic of prediabetes. In a patient with classic symptoms of hyperglycemia or hyperglycemic crisis, a random glucose >/= 200 mg/dl is diagnostic for diabetes. In the absence of unequivocal hyperglycemia, results should be confirmed by repeat testing. The classification and Diagnosis of Diabetes Diabetes Care 2021; 46: S19-S40. Current interpretive data was last revised 2022. Calcium 8.6 8.5 - 10.3 mg/dL [facility] Bilirubin, total 0.2 0.1 - 1.2 mg/dL [facility] Protein, pl 6.1(L) 6.5 - 8.5 g/dL [facility] Albumin 3.8 3.5 - 5.0 g/dL [facility] Alk phos 58 40 - 130 Units/L [facility] ALT 9 7 - 45 Units/L [facility] AST 10 10 - 45 Units/L [facility] Blood 07/03/2024 9:59 PM BIOINFORMATICS RESEARCH TECHNICIAN 07/03/2024 10:15 PM BIOINFORMATICS RESEARCH TECHNICIAN us Jaimie Huang MD LAB BLOOD ORDERABLES Florence l Result Performing Organization Address [facility]/ZIP Co de Phone Number [facility] Department [place] [address] * (ABNORMAL) eGFR (07/03/2024 1:41 PM BIOINFORMATICS RESEARCH TECHNICIAN) Pathologist [facility] [place] eGFR 56(L) >=60 mL/min/1. 73 m2 Comment: Interpretive Data Reference Interval Normal >/= 90 mL/min/1.73m2 Mildly decreased* 60 - 89 mL/min/1.73m2 Mildly to moderately decreased 45 - 59 mL/min/1.73m2 Moderately to severely decreased 30 - 44 mL/min/1.73m2 Severely decreased 15 - 29 mL/min/1.73m2 Kidney Failure < 15 mL/min/1.73m2 *Relative to young adult level Estimated glomerular filtration rate is determined by the 2020 CKD-EPI equation recommended by the [employer] (A Unifying Approach to GFR Estimation: Recommendations of the NKF-ASK Task Force on Reassessing the Inclusion of Race in Diagnosing Kidney Disease, JASN 2020). The CKD-EPI equation should not be used for patients with unstable renal function and has not been validated in children and those over 70. Current interpretive data was last reviewed 2021. Blood 07/03/2024 1:41 PM BIOINFORMATICS RESEARCH TECHNICIAN 07/03/2024 2:27 PM BIOINFORMATICS RESEARCH TECHNICIAN J Carlos Castillo MD LAB BLOOD ORDERABLES Florence l Result Performing Organization Address [facility]/ZIP Co de Phone Number [facility] Department [place] [address] * (ABNORMAL) CBC without differential (07/03/2024 1:41 PM BIOINFORMATICS RESEARCH TECHNICIAN) Pathologist [facility] [place] WBC 12.4(H) 3.8 - 9.9 K/cumm Hgb 10.4(L) 11.9 - 15.5 g/dL [facility] Hct 30.8(L) 35.6 - 45.5 % [facility] Plt 196 150 - 400 K/cumm [facility] MPV 10.1 9.1 - 12.3 fL [facility] RBC 3.32(L) 3.90 - 5.20 M/cumm [facility] MCV 92.8 81.3 - 96.4 fL [facility] MCH 31.3 27.1 - 33.3 pg [facility] MCHC 33.8 32.3 - 35.7 g/dL [facility] RDW CV 12.2 11.1 - 14.9 % [facility] RDW SD 41.2 35.7 - 48.1 fL [facility] NRBC abs 0.00 0.00 - 0.01 K/cumm [facility] Blood 07/03/2024 1:41 PM BIOINFORMATICS RESEARCH TECHNICIAN 07/03/2024 2:28 PM BIOINFORMATICS RESEARCH TECHNICIAN J Carlos Castillo MD LAB BLOOD ORDERABLES Florence l Result Performing Organization Address City/[facility] Co de Phone Number [facility] Department [place] [address] * TSH (07/03/2024 1:41 PM BIOINFORMATICS RESEARCH TECHNICIAN) Thyroid Stimulating Hormone 0.72 0.30 - 4.20 mcIUnit/mL Blood 07/03/2024 1:41 PM BIOINFORMATICS RESEARCH TECHNICIAN 07/03/2024 2:27 PM BIOINFORMATICS RESEARCH TECHNICIAN J Carlos Castillo MD LAB BLOOD ORDERABLES Florence l Result Performing Organization Address City/[facility] Co de Phone Number [facility] Department [place] [address] * Phosphorus (07/03/2024 1:41 PM BIOINFORMATICS RESEARCH TECHNICIAN) An [id number]|2024-09-15 08:26:22|2024-09-15 08:26:22|ED.[id number]||||"HPI - Skin/Abscess/Foreign Bdy General Chief complaint: Skin/Abscess/Foreign Body Stated complaint: rash Time Seen by Provider: 09/15/24 08:15 Source: patient Mode of arrival: ambulatory Limitations: no limitations History of Present Illness HPI narrative: Patient is a 64-year-old female that presents with rash to left palm, left arm and left side of chest. Patient states they just got back from [place] on Saturday and did yard work. Patient states she was not pulling weeds but did clean out the mower deck after her mowed. Patient states rash started on Saturday being painful in the palm and itchy. Patient then got in her hot tub and this morning the rash is going up arm and on left chest. Patient also pointed out but by in middle of upper back that was present prior to going [place]. That has no surrounding erythema or blisters. Denies any URI symptoms, shortness of breath or facial swelling. Related Data Home Medications Medication Instructions Recorded Confirmed Last Taken Type estradiol-norethindrone acet 0.5 1 tablet PO DAILY 04/06/19 09/15/24 Unknown History mg-0.1 mg tablet celecoxib 200 mg capsule mg 06/24/23 Unknown History Allergies Allergy/AdvReac Type Severity Reaction Status Date / Time oxycodone AdvReac Intermediate Hypotension Verified 09/15/24 08:47 Review of Systems Review of Systems: All systems reviewed & are unremarkable except as noted in HPI and below Constitutional: Constitutional: Denies body ache(s), Denies chills, Denies fatigue, Denies fever(s), Denies headache(s), Denies malaise and Denies weakness Eyes: Eyes: Denies blurry vision, Denies irritation and Denies loss of vision ENT: Denies otalgia, Denies headache(s), Denies nasal discharge, Denies sinus pain and Denies sore throat Cardiovascular: Cardiovascular: Denies chest pain, Denies irregular heart rhythm and Denies dyspnea Respiratory: Respiratory: Denies dyspnea Gastrointestinal: Gastrointestinal: Denies abdominal pain, Denies melena, Denies hematochezia, Denies diarrhea, Denies nausea and Denies vomiting Musculoskeletal: Musculoskeletal: Denies back pain, Denies myalgias and Denies arthralgias Integumentary/Breasts: Skin/Breast: Reports pruritus and Reports rash Neurologic: Denies headache(s), Denies loss of vision and Denies weakness Psychiatric: Psychiatric: Reports no additional psychiatric complaints Endocrine: Endocrine: Denies fatigue PMFSH Past Medical History Medical History Vitamin D deficiency Family History Family History Mother Diabetes mellitus Hypertension Family history of malignant neoplasm of breast in first degree relative Family history of diabetes mellitus in first degree relative Father Family history of malignant neoplasm of bone Social History Social History Smoking status: Never smoker Second hand tobacco smoke exposure: No Alcohol intake: current Comments At time of signature, agree with nursing past medical, surgical, social and family history. There is no relevant family history pertinent to the presenting complaint. Exam Const: General: cooperative, healthy appearing, comfortable, no acute distress and well nourished Nutritional Appearance: well nourished Orientation/consciousness: patient oriented x3 Limitations: no limitations HENMT: Head: normal to inspection, normocephalic and atraumatic Ears: hearing grossly normal bilaterally and external ears normal Face/Nose/Sinus: Normal external nose present, normal facial exam and face symmetric Face and sinus: normal facial exam and face symmetric Mouth: Yes lip normal Eyes: General: appearance normal, both eyes and all related structures Alignment and Position: alignment normal and position normal Periorbital: periorbital findings normal Eyelids: eyelids normal Pupils: Equal, round and reactive pupils present EOM: EOMs intact bilaterally Neck: Neck: normal visual inspection, full ROM and supple Chest: Chest palpation & inspection: normal inspection of the chest Resp: Effort & Inspection: normal respiratory effort and able to speak in complete sentences Auscultation: clear to auscultation bilaterally Cardio: Rate: regular rate Rhythm: regular rhythm Heart sounds: S1 normal heart sound present and S2 normal heart sound present GI: Inspection: normal to inspection Skin: General skin exam: normal color and no rashes or lesions noted Rashes: rashes noted vesicles left arm arrangement grouped, borders sharp and irregular, color with an erythematous base, surface smooth, waxy and wet and tender Full body images:  1. Grouped area of vesicles with wet waxy appearance, mildly erythemic and tender to touch 2. Grouped area of vesicles with wet waxy appearance, erythemic and tender to touch 3. Grouped area of vesicles with wet waxy appearance, erythemic and tender to touch 4. 3 bug bites that are open from scratching and healing. NO surrounding erythema or drainage. Neuro: General: patient oriented x3 and moves all extremities Cranial nerves: Yes Equal, round and reactive pupils present Speech: normal speech Gait exam (Neuro): Normal gait present Extrem: General: normal to inspection, full ROM and no edema Psych: Appearance: grossly normal and well kempt Mental Status: mental status grossly normal Speech and movement: Normal speech and movement present Affect: normal affect Attitude: cooperative Thought process: Normal thought process present Course Course Emergency Course: Patient is aware of diagnosis, understands and agrees to treatment plan. Anticipatory guidance given. Patient agrees to follow-up as directed and is aware of reasons to seek care at the emergency department. Portions of this record may have been created with voice recognition software Level of Care: Express Care Visit Vital Signs Vital signs: Reviewed MDM - Skin/Abscess/Foreign Bdy MDM Narrative Medical decision making narrative: Pt well hydrated appearing, in no respiratory distress, hemodynamically stable. Recommend supportive care. The patient is stable at time of discharge the clinical impression was discussed and the patient was given the opportunity to ask questions, which were addressed as completely as possible given the information available at present. Anticipatory guidance and return to care precautions were discussed and the importance of primary care follow-up was stressed and encouraged. The patient voiced understanding of the plan, indications to return, and the need for follow-up. Exam findings show no acute concerns or changes Patient is appropriate for outpatient treatment and follow-up. Differential Diagnosis Differential diagnosis: Likely abscess of skin or subcutaneous tissue, viral exanthem, herpes zoster, allergic reaction to drug, cellulitis, insect bites and contact dermatitis Medical Records Attestation: I reviewed the patient's medical records. Discharge Plan Discharge Clinical Impression: Contact dermatitis Qualifiers: Contact dermatitis type: allergic Contact dermatitis trigger: non-food plants Qualified Code(s): L23.7 - Allergic contact dermatitis due to plants, except food Patient Disposition: Home Condition: Stable Instructions: Poison Francine (ED) Additional Instructions: Take steroids in the morning with food Prevention is always better than treatment. Learn to identify poison francine, oak, and sumac and avoid it. Wear long sleeves, long pants, shoes, and socks. If you touched the plant, try to keep your hands away from your eyes, mouth, and face. Wash the skin thoroughly with soap and cool water as soon as possible. Scrub under the fingernails with a brush to prevent spreading of the resin to other parts of the body by touching or scratching. Remember to wash any clothing with soap and hot water as the resin can persist for many months and cause further dermatitis. You should NOT use antihistamine creams or lotions, anesthetic creams containing benzocaine, or antibiotic creams containing neomycin or bacitracin to the skin. These creams or ointments could make the rash worse. For some people, adding oatmeal to a bath, applying cool wet compresses, and applying calamine lotion may help to relieve itching. Once the blisters begin weeping fluid, astringents containing aluminum acetate (Burow's solution) and Domeboro may help to relieve the rash. IF symptoms get worse to follow up with your primary care provider or seek ER visit if you developing difficulty breathing, weakness, dizziness. Patient Language: [place] Prescriptions: New prednisone 10 mg tablet See Rx Instructions .ROUTE .COMPLEX Qty: 35 0RF Rx Instructions: 40 mg daily for 5 days, 20 mg daily for 5 days, 10 mg daily for 5 days No Action estradiol-norethindrone acet 0.5-0.1 mg Tablet 1 tablet PO DAILY celecoxib 200 mg capsule Follow-up/Referrals: Satinder Cheung MD [Physician] - 3 Days (Establish care) Stand Alone Forms: Work/School Release IP Time of Disposition: 08:58"
--- OUTSIDE RECORDS SUMMARY | 2024-09-15 08:24 | XMS_ITS | Clinical Summary ---
Author Organization [facility] [address] [facility] Address [address] [place] [address] Care Team Providers Care Cleat Feeder Name Role Phone No, Physician Primary Care Provider [phone] Allergies Active Allergy Reactions Criticality Noted Date [...] pain or headaches Active vit A,C and D-mdjioe-jepwmaj s (OCUVITE with LUTEIN) 300 mcg-200 mg-27 [...] 07/03/2024 Assessment & Plan (07/03/2024 5:20 PM BOWLING FLOOR MANAGER): Pt with new bradycardia (sinus reggie on [...] health. Reviewed immunizations Reviewed age appropirate screenings. Encounters Date Type Department Care Team Description 08/26/2024 2:30 PM CDT [facility] Visit [facility] 7th Floor [address] [place] [address] Jaimie Huang MD Uterine prolapse (Primary Dx) 07/21/2024 Telephone [facility] [address] [facility] 7th Floor [address] [place] [address] Elina Walls, RN 07/08/2024 Telephone [facility] [address] [facility] 7th Floor [address] [place] [address] Elina Walls, RN [facility] 07/06/2024 Telephone [facility] [address] [place] [address] 7th Floor [address] [place] [address] Elina Walls, RN Post-Op Call 07/03/2024 Telephone [facility] 8th [place] [address] [place] [address] Padma Davis 07/03/2024 Telephone [facility] 7th Floor [address] [place] [address] Elina Walls, RN Post-Op Call 07/02/2024 12:20 PM BOWLING FLOOR MANAGER - 07/02/2024 3:45 PM BOWLING FLOOR MANAGER Surgery [facility] Operating Room [address] [place] [address] Jaimie Huang MD HYSTERECTOMY VAGINAL 07/02/2024 12:07 PM BOWLING FLOOR MANAGER Anesthesia Event [facility] Operating Room [address] [place] [address] Gerardo Ball MD PhD Jaimie Spann NP 07/02/2024 9:53 AM BOWLING FLOOR MANAGER - 07/04/2024 11:59 AM BOWLING FLOOR MANAGER Hospital Encounter [address] [address] Jaimie Huang MD Uterine prolapse Discharge Disposition: Discharge to home or self care 07/01/2024 Telephone [facility] [address] [place] [address] 7th Floor [address] [place] [address] Tomasa Pedraza CMA 06/24/2024 1:30 PM BOWLING FLOOR MANAGER Pre-Admission Testing [facility] Center for Preoperative Assessment and Planning [facility] ([facility]) [address] [place] [id number] Preoperative testing (Primary Dx); Uterine prolapse from Last 3 Months Immunizations Immunization Administration Dates Next Due Influenza, Unspecified 05/30/2021(Deferred: Mary ent Refused) Surgical History Surgery Date Site/Laterality Comments CATARACT EXTRACTION Left HYSTERECTOMY July 02 CYSTOCELE REPAIR July 02 Medical History Medical History Date Comments Arthritis Family History Medical History Relation Name Comments Hearing loss Father Jaspal Richey Prostate cancer Father Jaspal Richey Arthritis Mother Lilliam Richey Breast cancer Mother Lilliam Richey Diabetes Mother Lilliam Richey Hearing loss Mother Lilliam Richey Heart disease Mother Lilliam Richey Hypertension Mother Lilliam Richey Anesthesia problems Sister PONV wit h cholecystectomy Relation Name Status Comments Father Jaspal Richey Mother Lilliam Richey Sister Social History Tobacco Use Types Packs/Day Years [...] on file Legal Sex Female 6:24 PM BOWLING FLOOR MANAGER Gender Identity Female 08/25/2024 11:16 PM CDT Sexual Orientation Not on file Obstetrics History Para Term AB IAB SAB Ectopic Multiple Livin g Live Births 3 3 3 3 3 Date Outcome GA Total Labor Labor/2nd/3rd Weight Sex Type Anes PTL Milly A1 A5 Name Clin Term Vag-Spo nt Living Term Vaginal Living Term Vag-Spo nt Living Last Filed Vital Signs Vital Sign Reading Time Taken Comments Blood Pressure 140/88 08/26/2024 2:23 PM CDT Pulse 62 07/04/2024 3:15 AM BOWLING FLOOR MANAGER Temperature 36.5 C (97.7 F) 07/04/2024 10:15 AM BOWLING FLOOR MANAGER Respiratory Rate 18 07/04/2024 10:1 5 AM BOWLING FLOOR MANAGER Oxygen Saturation 98% 07/04/2024 3:15 AM BOWLING FLOOR MANAGER Inhaled Oxygen Concentration - - Weight 69.8 kg (153 lb 12.8 oz) 08/26/2024 2:23 PM CDT Height 170.2 cm (5' 7 ) 08/26/2024 2:23 PM CDT Body Mass Index 24.09 08/26/2024 2:23 PM CDT Plan of Treatment Health Maintenance Due Date Last Done Comments Hepatitis C Screening 1960 DTaP/Tdap/Td Vaccine (1 - Tdap) 1973 Hepatitis B Screening 01/15/1980 Zoster Vaccine (1 of 2) 01/15/2012 Depression Screening 07/17/2022 07/17/2021 Regular Well Visit/Exam 18-64 07/17/2022 07/17/2021 Breast Cancer Screening-Mammogram 08/18/2022 08/18/2021 Colon Cancer Screening-Colonoscopy 08/18/2022 08/18/2012 Covid-19 Vaccine (3 - 2023-2 5 season) 2023 08/15/2020, 07/24/2020 Influenza Vaccine (Season Ended) 2024 Pneumococcal vaccine <65 Aged Out No longer eligible based on patient's age to complete this topic Goals Goal Patient Goal Type Associated Problems [...] on stairs Contact your local community or senior yantic for information on exercise, fall prevention programs, or options for improving home safety. Medical Devices Implanted Type Area Insight Leader Device Identifier Shelf Expiration Date Model / Serial / Lot [employer] Kit Transvaginal Sling Pubourethral Female Stress Incontinence Kuldip Thomas 1.1x45cm [id number]-Ds01 - Sn/A - [id number] Implanted:Qty: 1 on 07/02/2024 by Jaimie Huang MD at [facility] Mesh N/A: Vagina [employer] 08/18/2028 DORA-DS01 / N/A / Procedures Procedure Name Priority Date/Time Associated Diagnosis Comments EGFR STAT 07/04/2024 8:44 AM BOWLING FLOOR MANAGER COMPREHENSIVE METABOLIC PANEL STAT 07/04/2024 8:44 AM BOWLING FLOOR MANAGER CBC WITHOUT DIFFERENTIAL STAT 025 8:44 AM BOWLING FLOOR MANAGER EGFR Routine 07/03/2024 9:59 PM BOWLING FLOOR MANAGER PHOSPHORUS Routine 07/03/2024 9:59 PM BOWLING FLOOR MANAGER MAGNESIUM Routine 07/03/2024 9:59 PM BOWLING FLOOR MANAGER COMPREHENSIVE METABOLIC PANEL Routine 07/03/2024 9:59 PM BOWLING FLOOR MANAGER CBC WITHOUT DIFFERENTIAL Routine 025 9:59 PM BOWLING FLOOR MANAGER EGFR STAT 07/03/2024 1:41 PM BOWLING FLOOR MANAGER TSH STAT 07/03/2024 1:41 PM BOWLING FLOOR MANAGER COMPREHENSIVE METABOLIC PANEL STAT 07/03/2024 1:41 PM BOWLING FLOOR MANAGER PHOSPHORUS STAT 07/03/2024 1:41 PM BOWLING FLOOR MANAGER MAGNESIUM STAT 07/03/2024 1:41 PM BOWLING FLOOR MANAGER CBC WITHOUT DIFFERENTIAL STAT 025 1:41 PM BOWLING FLOOR MANAGER ECG 12-LEAD STAT 07/03/2024 12:00 PM BOWLING FLOOR MANAGER POCT GLUCOSE DEVICE Routine 07/03/2024 10:28 AM BOWLING FLOOR MANAGER CBC WITHOUT DIFFERENTIAL Routine 025 4:00 AM BOWLING FLOOR MANAGER MAGNESIUM STAT 07/02/2024 7:45 PM BOWLING FLOOR MANAGER PHOSPHORUS STAT 07/02/2024 7:45 PM BOWLING FLOOR MANAGER EGFR STAT 07/02/2024 7:45 PM BOWLING FLOOR MANAGER BASIC METABOLIC PANEL STAT 07/02/2024 7:45 PM BOWLING FLOOR MANAGER CBC WITHOUT DIFFERENTIAL STAT 025 7:45 PM BOWLING FLOOR MANAGER ND AN PROCEDURE PLACEHOLDER Routine 07/02/2024 1:30 PM BOWLING FLOOR MANAGER ND AN PROCEDURE PLACEHOLDER Routine 07/02/2024 1:27 PM BOWLING FLOOR MANAGER ND AN ELECTIVE ENDOTRACHEAL AIRWAY Routine 07/02/2024 1:27 PM BOWLING FLOOR MANAGER SURGICAL PATHOLOGY Routine 07/02/2024 1: 03 PM BOWLING FLOOR MANAGER Uterine prolapse B CHECK SAMPLE STAT 07/02/2024 12:40 PM BOWLING FLOOR MANAGER COLPOPERINEORRHAPHY 07/02/2024 12:10 PM BOWLING FLOOR MANAGER Uterine prolapse COLPOPEXY SACROSPINOUS 12:10 PM BOWLING FLOOR MANAGER Uterine prolapse REPAIR ENTEROCELE 07/02/2024 12:10 PM BOWLING FLOOR MANAGER Uterine prolapse REPAIR RECTOCELE 07/02/2024 12:10 PM BOWLING FLOOR MANAGER Uterine prolapse REPAIR CYSTOCELE ANTERIOR COLPORRHAPHY 07/02/2024 12:10 PM BOWLING FLOOR MANAGER Uterine prolapse SALPINGECTOMY 07/02/2024 12:10 PM BOWLING FLOOR MANAGER Uterine prolapse HYSTERECTOMY VAGINAL 07/02/2024 12:10 PM BOWLING FLOOR MANAGER Uterine prolapse EGFR Routine 06/24/2024 2:30 PM BOWLING FLOOR MANAGER Uterine prolapse DIFFERENTIAL AUTO Routine 06/24/2024 2:3 0 PM BOWLING FLOOR MANAGER Uterine prolapse TYPE AND SCREEN 14 DAY Routine 2:30 PM BOWLING FLOOR MANAGER Preoperative testing CBC WITH AUTO DIFFERENTIAL Routine 06/24/2024 2:30 PM BOWLING FLOOR MANAGER Uterine prolapse BASIC METABOLIC PANEL Routine 06/24/2024 2:30 PM BOWLING FLOOR MANAGER Uterine prolapse SCREENING MAMMOGRAM BILATERAL W BENEDICT Schedule Routine, Read Routine (OP Routine) 08/18/2021 COLONOSCOPY Routine 08/18/2012 from Last 3 Months or Most Recently Relevant to Health Maintenance Results * (ABNORMAL) eGFR (07/04/2024 8:44 AM BOWLING FLOOR MANAGER) eGFR 58(L) >=60 mL/min/1. 73 m2 Comment: [...] last reviewed 2021. Blood 07/04/2024 8:44 AM BOWLING FLOOR MANAGER 07/04/2024 9:06 AM BOWLING FLOOR MANAGER us J Carlos Castillo MD LAB BLOOD ORDERABLES Florence curran Result [facility] [place] [address] * (ABNORMAL) CBC without differential (07/04/2024 8:44 AM BOWLING FLOOR MANAGER) [facility] WBC 8.2 3.8 - 9.9 K/cumm Hgb 10.6(L) 11.9 - 15.5 g/dL [facility] Hct 31.7(L) 35.6 - 45.5 % [facility] Plt 183 150 - 400 K/cumm [facility] MPV 9.9 9.1 - 12.3 fL [facility] RBC 3.37(L) 3.90 - 5.20 M/cumm [facility] MCV 94.1 81.3 - 96.4 fL [facility] MCH 31.5 27.1 - 33.3 pg [facility] MCHC 33.4 32.3 - 35.7 g/dL [facility] RDW CV 12.4 11.1 - 14.9 % [facility] RDW SD 42.5 35.7 - 48.1 fL [facility] NRBC abs 0.00 0.00 - 0.01 K/cumm [facility] Blood 07/04/2024 8:44 AM BOWLING FLOOR MANAGER 07/04/2024 9:06 AM BOWLING FLOOR MANAGER us J Carlos Castillo MD LAB BLOOD ORDERABLES Florence l Result [facility] [place] [address] * (ABNORMAL) Comprehensive metabolic panel (07/04/2024 8:44 AM BOWLING FLOOR MANAGER) [facility] Sodium 142 135 - 145 mmol/L Potassium, pl 3.8 3.3 - 4.9 mmol/L [facility] Chloride 106 97 - 110 mmol/L [facility] CO2 29 22 - 32 mmol/L [facility] Anion gap 7 2 - 15 mmol/L [facility] BUN 11 6 - 25 mg/dL [facility] Creatinine 1.08 0.60 - 1.10 mg/dL [facility] Glucose 107 70 - 199 mg/dL [facility] Comment: Interpretive Data Fasting glucose >/= [...] 2022. Calcium 8.6 8.5 - 10.3 mg/dL [facility] Bilirubin, total 0.4 0.1 - 1.2 mg/dL [facility] Protein, pl 6.2(L) 6.5 - 8.5 g/dL [facility] Albumin 3.9 3.5 - 5.0 g/dL [facility] Alk phos 52 40 - 130 Units/L [facility] ALT 10 7 - 45 Units/L [facility] AST 18 10 - 45 Units/L [facility] Blood 07/04/2024 8:44 AM BOWLING FLOOR MANAGER 07/04/2024 9:06 AM BOWLING FLOOR MANAGER us J Carlos Castillo MD LAB BLOOD ORDERABLES Florence curran Result [facility] [place] [address] * (ABNORMAL) eGFR (07/03/2024 9:59 PM BOWLING FLOOR MANAGER) Pathologist [facility] eGFR 53(L) >=60 mL/min/1. 73 m2 Comment: [...] last reviewed 2021. Blood 07/03/2024 9:59 PM BOWLING FLOOR MANAGER 07/03/2024 10:15 PM BOWLING FLOOR MANAGER us Jaimie Huang MD LAB BLOOD ORDERABLES Florence curran Result [facility] [place] [address] * (ABNORMAL) CBC without differential (07/03/2024 9:59 PM BOWLING FLOOR MANAGER) WBC 9.7 3.8 - 9.9 K/cumm Hgb 10.3(L) 11.9 - 15.5 g/dL [facility] Hct 31.1(L) 35.6 - 45.5 % [facility] Plt 202 150 - 400 K/cumm [facility] MPV 10.1 9.1 - 12.3 fL [facility] RBC 3.32(L) 3.90 - 5.20 M/cumm [facility] MCV 93.7 81.3 - 96.4 fL [facility] MCH 31.0 27.1 - 33.3 pg [facility] MCHC 33.1 32.3 - 35.7 g/dL [facility] RDW CV 12.2 11.1 - 14.9 % [facility] RDW SD 41.4 35.7 - 48.1 fL [facility] NRBC abs 0.00 0.00 - 0.01 K/cumm [facility] Blood 07/03/2024 9:59 PM BOWLING FLOOR MANAGER 07/03/2024 10:15 PM BOWLING FLOOR MANAGER Jaimie Huang MD LAB BLOOD ORDERABLES Florence l Result Performing Organization Address [facility] Co de Phone Number [facility] [place] [address] * (ABNORMAL) Phosphorus (07/03/2024 9:59 PM BOWLING FLOOR MANAGER) [facility] Phosphorus, pl 2.2(L) 2.3 - 4.5 mg/dL Blood 07/03/2024 9:59 PM BOWLING FLOOR MANAGER 07/03/2024 10:15 PM BOWLING FLOOR MANAGER Jaimie Huang MD LAB BLOOD ORDERABLES Florence l Result Performing Organization Address [facility] de Phone Number [facility] [place] [address] * Magnesium (07/03/2024 9:59 PM BOWLING FLOOR MANAGER) [facility] Magnesium 2.0 1.4 - 2.5 mg/dL Blood 07/03/2024 9:59 PM BOWLING FLOOR MANAGER 07/03/2024 10:15 PM BOWLING FLOOR MANAGER Jaimie Huang MD LAB BLOOD ORDERABLES Florence l Result Performing Organization Address [facility] [place] [address] * (ABNORMAL) Comprehensive metabolic panel (07/03/2024 9:59 PM BOWLING FLOOR MANAGER) [facility] Sodium 144 135 - 145 mmol/L Potassium, pl 4.3 3.3 - 4.9 mmol/L [facility] Chloride 109 97 - 110 mmol/L [facility] CO2 29 22 - 32 mmol/L [facility] Anion gap 6 2 - 15 mmol/L [facility] BUN 15 6 - 25 mg/dL [facility] Creatinine 1.17(H) 0.60 - 1.10 mg/dL [facility] Glucose 95 70 - 199 mg/dL [facility] Comment: Interpretive Data Fasting glucose >/= [...] 2022. Calcium 8.6 8.5 - 10.3 mg/dL [facility] Bilirubin, total 0.2 0.1 - 1.2 mg/dL [facility] Protein, pl 6.1(L) 6.5 - 8.5 g/dL [facility] Albumin 3.8 3.5 - 5.0 g/dL [facility] Alk phos 58 40 - 130 Units/L [facility] ALT 9 7 - 45 Units/L [facility] AST 10 10 - 45 Units/L [facility] Blood 07/03/2024 9:59 PM BOWLING FLOOR MANAGER 07/03/2024 10:15 PM BOWLING FLOOR MANAGER Jaimie Huang MD LAB BLOOD ORDERABLES Florence bina Result [facility] [place] [address] * (ABNORMAL) eGFR (07/03/2024 1:41 PM BOWLING FLOOR MANAGER) eGFR 56(L) >=60 mL/min/1. 73 m2 Comment: [...] last reviewed 2021. Blood 07/03/2024 1:41 PM BOWLING FLOOR MANAGER 07/03/2024 2:27 PM BOWLING FLOOR MANAGER us J Carlos Castillo MD LAB BLOOD ORDERABLES Florence curran Result [facility] [place] [address] * (ABNORMAL) CBC without differential (07/03/2024 1:41 PM BOWLING FLOOR MANAGER) [facility] WBC 12.4(H) 3.8 - 9.9 K/cumm Hgb 10.4(L) 11.9 - 15.5 g/dL [facility] Hct 30.8(L) 35.6 - 45.5 % [facility] Plt 196 150 - 400 K/cumm [facility] MPV 10.1 9.1 - 12.3 fL [facility] RBC 3 [id number]|2024-09-15 08:26:00|2024-09-15 08:26:00|ED_ITS|[employer]|Health Information Management|[id number]|"HPI - Skin/Abscess/Foreign Bdy General Chief complaint: Skin/Abscess/Foreign Body Stated complaint: rash Time Seen by Provider: 09/15/24 08:15 Source: patient Mode of arrival: ambulatory Limitations: no limitations History of Present Illness HPI narrative: Patient is a 64-year-old female that presents with rash to left palm, left arm and left side of chest. Patient states they just got back from [place] on Saturday and did yard work. Patient [...] back that was present prior to going [place]. That has no surrounding erythema or blisters. [...] Hypotension Verified 09/15/24 08:47 Review of Systems 2 Review of Systems: All systems reviewed & [...] history pertinent to the presenting complaint. Exam 2 Const: General: cooperative, healthy appearing, comfortable, no acute distress and well nourished Nutritional Appearance: well nourished O rientation/consciousness: patient oriented x3 Limitations: no limitations HENMT: Head: normal to inspection, normocephalic and atraumatic Ears: h earing grossly normal bilaterally and external ears normal Face/Nose/Sinus: N ormal external nose present, normal facial exam and face symmetric Face and sinus: normal facial exam and face symmetric Mouth: Yes lip normal Eyes: General: appearance normal, both eyes and all related structures A lignment and Position: alignment normal and position normal Periorbital: p eriorbital findings normal Eyelids: eyelids normal Pupils: Equal, [...] color and no rashes or lesions noted R ashes: rashes noted vesicles left arm arrangement grouped, borders sharp and irregular, color with an erythematous base, surface smooth, waxy and wet and tender Full body images: 1. Grouped area of vesicles with wet waxy appearance, mildly erythemic and tender to touch 2. Grouped area of vesicles with wet wax y appearance, erythemic and tender to touch 3. Grouped area of vesicles with wet wax y appearance, erythemic and tender to touch 4. 3 bug bites that are open from scratc tonya and healing. NO surrounding erythema or drainage. [...] type: allergic Contact dermatitis trigger: non-food plants Q ualified Code(s): L23.7 - Allergic contact dermatitis due [...] developing difficulty breathing, weakness, dizziness. Patient Language: [place] Prescriptions: New prednisone 10 mg tablet See [...] Forms: Work/School Release IP Time of Disposition: 08:58 "
[2024-09-15 08:28] VITALS: BP 121/83; PULSE 77; RESP 18; TEMP 37.1; O2SAT 100
== END 2024-09-15 08:59 | disposition home or self-care (01) ==
PROVIDERS: Emergency Provider Nurse Practitioner Family; Referring Provider Emergency Medicine
DX: L23.7 Allergic contact dermatitis due to plants, except food (principal)
CPT/HCPCS: 99213; G0463